=== PATIENT | male | born 1970 | race Hispanic/Latino ===

== ENCOUNTER 2017-10-07 10:03 | Day surgery (SDC) | payer OTHER ==
[2017-10-07] MEDS ORDERED: Ringers Lactate 1,000 ML IV ONE ×2 (10:19→14:26)
[2017-10-07] MEDS ORDERED: GENTAMICIN 80 MG/100 ML BAG 80 MG/100 ML BAG IV ONE (10:20)
[2017-10-07 10:26] LABS: Absolute Lymphocytes (CBC) 2.5 K/uL (0.7-4.9); Absolute Monocytes 0.7 K/uL (0.1-1.3); Absolute Neutrophil 3.6 K/uL (1.8-8.0); Basophils % 0.4 % (0-1.3); Eosinophils % 4.8 % (0-4.4); Hematocrit 47.2 % (39.6-49.0); Lymphocytes % 34.8 % (15.3-44.8); MCH 31.8 pg (27.0-35.0); MCV 90.9 fL (80-100); MPV 7.5 fL (7.6-11.3); Monocytes % 9.5 % (3.3-12.3); RBC Red Blood Cell Count 5.19 M/uL (4.33-5.43)
[2017-10-07 10:37] LABS: Potassium 4.1 mEq/L (3.6-5.0)
[2017-10-07] MEDS ORDERED: LIDOCAINE 2% MPF 5 ML VIAL ONE (12:36)
[2017-10-07] MEDS ORDERED: PROPOFOL 200 MG/20 ML VIAL IV ONE (12:36)
[2017-10-07] MEDS ORDERED: FENTANYL CITR 100 MCG/2 ML ONE (12:36)
[2017-10-07] MEDS ORDERED: MIDAZOLAM HCL 2 MG/2 ML INJ ONE (12:36)
[2017-10-07] MEDS ORDERED: KETOROLAC 30 MG/ML INJ ONE (13:26)
[2017-10-07] MEDS: MEPERIDINE HCL 25 MG/0.5 ML ONE ×2 (14:23→14:29)
--- NOTE | 2017-10-07 14:36 | EKG ---
Test Date: 2017-10-07 Test Time: 10:12:22 Sample Paster: INGRID MEASUREMENT RESULTS: Intervals: Rate: 74 LA: 146 QRSD: 84 QT: 372 QTc: 412 [place]: P: 56 LA: 146 QRS: -1 T: 32 INTERPRETIVE STATEMENTS: Normal sinus rhythm Nonspecific ST abnormality Abnormal ECG Compared to ECG 05/09/2017 23:18:30 ST (T wave) deviation now present Electronically Signed On 10-07-17 14:33:52 CDT by Qasim Luna
[2017-10-07 15:43] VITALS: BP 114/76; TEMP 97.6; O2SAT 97
== END 2017-10-07 15:50 | disposition home or self-care (01) ==
LOC: OR 10:03
PROVIDERS: ATTEND Urology
PROC: 0TND8ZZ Release Urethra, Via Natural or Artificial Opening Endoscopic (ICD-10-PCS; principal; 2017-10-07 11:45)
DX: N35.9 Urethral stricture, unspecified (principal); R39.12 Poor urinary stream; F17.210 Nicotine dependence, cigarettes, uncomplicated; Z83.3 Family history of diabetes mellitus
CPT/HCPCS: 36415; 80048; 85025; 93005; J1580; J2175; J2250; J3010